=== PATIENT | male | born 1970 | race African-American/Black ===

== ENCOUNTER 2017-02-16 02:29 | Inpatient (IN) | payer BC ==
[~2017-02-16] VITALS: Ht 185.4 cm; Wt 101.0 kg
--- NOTE | ~2017-02-16 | DS ---
Unit #: [id number] #: [id number] Patient: CESAR ROY [id number] [facility] [address], [place] [address] [id number] I MR#: [id number] NAME: CESAR ROY ROOM: 573 Age: 46 Sex: M Admission Date: 02/16/2017 : 1970 Discharge Date: 02/20/2017 Attending Physician: Nellie Harmon M.D. DISCHARGE SUMMARY DICTATED FOR Dr. Geovany Davis with [facility]. HOSPITAL COURSE The patient presented to the [facility]'s Emergency Room on 02/16/2017 at 2:00 a.m. with complaints of chest pain. The patient was admitted, where he was admitted for acute coronary syndrome. The patient was had his troponins trended and EKG as well as A1c and lipid profile completed. The patient did have a blood sugar on admission of 486. Therefore, Endocrinology was consulted for new onset diabetes. A 2D echo was obtained. The patient was started on Integrilin drip as well as heparin drip. Troponin did come back positive at 1.08 and the patient was ruled in as a non-ST elevated VT at that point. The echo showed LVEF of 50% to 55%, mild MR, trivial TR, and RVSP of 32 mmHg. The patient was scheduled for cardiac cath, which he underwent on 02/18/2017. Coronaries were all normal except for RCA, where he had a 99.9% distal lesion. 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 The day after the catheterization, the patient was evaluated by Dr. Davis and his heart rate was a little fast as well as the patient was complaining of some dizziness. Therefore, the patient was started on Coreg for his heart rate and orthostatics were obtained. Orthostatic blood pressures were 107/62 lying, 113/69 sitting, and 112/70 standing, which is negative for orthostatic hypotension. This morning, the orthostatics were 118/59 lying, 131/62 sitting, and 124/69 standing, which again is negative for orthostatic hypotension. The patient is tolerating the Coreg well, where his heart rate is being maintained in the 60s and 70s. He complains of no further dizziness, lightheadedness, or any other symptoms. The patient states that he has been ambulating in the hallway well without any chest pain, pressure, tightness, or shortness of breath. The patient at this point is stable for discharge and is going to be discharged home to follow up with Dr. Harmon on 03/25/2017 at 1 p.m. He should also follow up with his primary care physician in 1 to 2 weeks. ALLERGIES No known allergies. HOME MEDICATIONS Include Coreg 6.25 mg p.o. b.i.d., Lipitor 80 mg p.o. daily, lisinopril 5 mg p.o. daily, Toujeo 40 units subcu at hours of sleep, 10 units of NovoLog with meals, aspirin 81 mg p.o. daily, Brilinta 90 mg p.o. b.i.d., nitroglycerin 0.4 mg tab sublingual every 5 minutes x3 doses as needed for chest pain. Unit #: [id number] #: [id number] Patient: CESAR ROY PHYSICAL EXAMINATION GENERAL: This is a 46-year-old male, who is alert and oriented x3, in no apparent distress. VITAL SIGNS: Blood pressure 122/69, temperature 98.8, pulse 79, respirations 18. HEENT: Pupils are equal, round, and reactive. Oral mucosa is moist. NECK: No JVD. No thyromegaly. No lymphadenopathy. No carotid bruits. HEART: S1, S2. No S3 or S4. No clicks. No rubs. No murmurs. Regular rate and rhythm. LUNGS: Clear. ABDOMEN: Soft. Bowel sounds positive. Nontender. Nondistended. EXTREMITIES: No swelling. Right radial cath site is clean, dry, and intact with no hematoma or bruit noted. Some slight bruising to the area that is noted to be normal. DISCHARGE INSTRUCTIONS The patient to be discharged home and to follow up with Dr. Harmon on 03/25/2017 at 1:00 p.m., also with the primary care physician in 1 to 2 weeks. The patient was given all activity restrictions related to his right radial cath site. The patient's verbalized understanding. DISCHARGE STATUS His condition is stable. Dictated by... RYNE Galvan/alex TD: 02/20/2017 20:29 JOB #: [id number] DISCHARGE SUMMARY Page 1 of 1 X X DISCHARGE SUMMARY
--- NOTE | ~2017-02-16 | EKG ---
PATIENT: CESAR ROY UNIT #: [id number] Ventricular Rate: 76 BPM Atrial Rate: 76 BPM P-R Interval: 170 ms QRS Duration: 88 ms Q-T Interval: 384 ms QTC Calculation(Bezet): 432 ms P [place]: 55 degrees Calculated R [place]: 46 degrees Calculated T [place]: 24 degrees Diagnosis Line: Normal sinus rhythm Diagnosis Line: Cannot rule out Inferior infarct Non Diagnostic Q Diagnosis Line: in Lead Inferior leads Diagnosis Line: When compared with ECG of 17-FEB-2017 07:25, Diagnosis Line: (unconfirmed) Diagnosis Line: No significant change was found Diagnosis Line: Confirmed by JEWEL HURD MD ([id number]) on 02/20/2017 Diagnosis Line: 7:47:53 AM INTERPRETING MD: VANNESSA CONLEY
--- NOTE | ~2017-02-16 | EKG ---
PATIENT: CESAR ROY UNIT #: [id number] Ventricular Rate: 70 BPM Atrial Rate: 70 BPM P-R Interval: 174 ms QRS Duration: 90 ms Q-T Interval: 382 ms QTC Calculation(Bezet): 412 ms P [place]: 44 degrees Calculated R [place]: 22 degrees Calculated T [place]: 20 degrees Diagnosis Line: Normal sinus rhythm Diagnosis Line: Normal ECG Diagnosis Line: When compared with ECG of 18-FEB-2017 06:01, Diagnosis Line: (unconfirmed) Diagnosis Line: No significant change was found Diagnosis Line: Confirmed by JEWEL HURD MD ([id number]) on 02/20/2017 Diagnosis Line: 7:50:18 AM INTERPRETING MD: VANNESSA CONLEY
--- NOTE | ~2017-02-16 | CO ---
Unit #: [id number] #: [id number] Patient: CESAR ROY [id number] [address] [place], [place] [address] [id number] I MR#: [id number] NAME: CESAR ROY ROOM: 573 Age: 46 Sex: M Admission Date: 02/16/2017 : 1970 Attending Physician: Nellie Harmon M.D. Primary Care Physician: Primary Care Physician No Consultation Date: 02/16/2017 CONSULTATION REPORT REASON FOR CONSULTATION Newly diagnosed type 2 diabetes mellitus. HISTORY OF PRESENT ILLNESS This is a 46-year-old male, who presented to the emergency room with chief complaint of the chest pain with a positive troponin. On further evaluation, he was found to have the abnormal glucose of 479 on his labs. He does report to have the polyuria, polydipsia, and lost about 30 pounds over the last 3 to 4 months. I have been asked to see the patient for further management. REVIEW OF SYSTEMS A 12-point review of systems is completed and remarkable for polyuria, polydipsia, weight loss as mentioned above. Chest pains, but no shortness of air. No urgency, hematuria, or dysuria. No nausea, vomiting, abdominal pain. No neuro problems or weaknesses, headaches, or seizures. Rest of the 12-point review of systems is unremarkable. SOCIAL HISTORY Declines tobacco or alcohol. He works in a . PAST SURGICAL HISTORY Umbilical hernia repair. FAMILY HISTORY Negative for coronary artery disease and diabetes. ALLERGIES None known. MEDICATION None. PHYSICAL EXAMINATION GENERAL: He is awake, alert, oriented to time, place, and person. VITAL SIGNS: Stable. Temperature 98.3, respiratory rate 16, blood pressure 120/70 and pulse is 78. HEENT: EOMI. Pupils equally reactive to light. NECK: Supple. No thyromegaly noted. CHEST: Good air entry. CVS: Regular rhythm. No murmurs. ABDOMEN: Soft and nontender. Bowel sounds positive. EXTREMITIES: No edema or ulcers are noted. Unit #: [id number] #: [id number] Patient: CESAR ROY NEUROLOGIC: Nonfocal. Moving all extremities. SKIN: No rashes. DIAGNOSTIC STUDIES LABORATORY RESULTS: Reviewed. Sodium is 127. CPK 342, troponin 1.02. TSH 1.05. ASSESSMENT 1. Type 2 diabetes mellitus, newly diagnosed. 2. Acute coronary syndrome with coronary artery disease. PLAN Discussed with the patient at length about the lifestyle modification. Get the nutrition consults. We will start the patient on the Levemir 30 units at bedtime, NovoLog 8 units each meal, medium dose supplemental sliding scale. Thanks again for consultation. We will follow the patient as an outpatient. Dictated by... Julia Le/alex TD: 02/16/2017 18:57 JOB #: [id number] CONSULTATION REPORT Page 1 of 1 X Shelby Valero MD X CONSULTATION REPORT
--- NOTE | ~2017-02-16 | EKG ---
PATIENT: CESAR ROY UNIT #: [id number] Ventricular Rate: 74 BPM Atrial Rate: 74 BPM P-R Interval: 178 ms QRS Duration: 86 ms Q-T Interval: 368 ms QTC Calculation(Bezet): 408 ms P [place]: 52 degrees Calculated R [place]: 33 degrees Calculated T [place]: 12 degrees Diagnosis Line: Normal sinus rhythm Diagnosis Line: Cannot rule out Inferior infarct Diagnosis Line: Abnormal ECG Diagnosis Line: When compared with ECG of 16-FEB-2017 05:41, Diagnosis Line: (unconfirmed) Diagnosis Line: No significant change was found Diagnosis Line: Confirmed by JEWEL HURD MD ([id number]) on 02/20/2017 Diagnosis Line: 7:44:05 AM INTERPRETING MD: VANNESSA CONLEY
--- NOTE | ~2017-02-16 | A ---
[facility] Nutrition Therapy DATE: 02/18/17 Patient: CESAR ROY Physician: ATTPRE Address: [address] [facility] Room/Bed: [address] [place] [address], Zip: [place] [address] Admit Date: 02/16/17 Date of : [birth year] Height: 6 1 Weight: 221 100.6 NUTRITIONAL ASSESSMENT: REASON: CONSULT RE: DIET EDUCATION PT IS 46 Y.O. MALE ADMITTED FOR CHEST PAIN, NEWLY DX OF DM PMH: NO KNOWN PMH Anthropometrics: 6'1", WT: 221-229# (100-104 KG), BMI: 29.2-30.2 Labs: GLU: 214, NA+:134 Meds: ZOFRAN, NOVOLOG, LEVEMIR, NACL, LIPITOR I/O & Bowel function: 2183/1804, 1 BM Skin Integrity: NO KNOWN SKIN ISSUES Assessment: CHART REVIEWED AND EVENTS NOTED. PT SEEN FOR DIET EDUCATION CONSULT. PT REPORTS LOSING ~30# PAST 3-4 MONTHS 2' DIABETES DX. RD PROVIDED WRITTEN AND VERBAL CC DIET EDUCATION. RD EMPHASIZED IMPORTANCE OF CONSUMING 3 BALANCED MEALS DAILY + LIMITING SUGAR-SWEETENED BEVERAGES. RD ALSO DISCUSSED WAYS OF LIMITING SALT INTAKE WELL. PT REPORTS CONSUMING FRIED FOODS AND DRINKS DIET SODAS AND SNACKS ON SWEETS. AND DEMONSTRATED UNDERSTANDING OF THE TOPIC, REPORTED NO DIET QUESTIONS AT THIS TIME. RD TO REMAIN AVAILABLE. Dx: FOOD AND NUTRITION RELATED KNOWLEDGE DEFICIT R/T DIET CHOICES, LIFESTYLE AEB PT REPORT ABOVE. 2. ALTERED NUTRIENT UTILIZATION R/T CURRENT DIAGNOSIS AEB NEED FOR THERAPEUTIC DIET ORDER. Intervention: 1. HH DIET 2. WRITTEN AND VERBAL CC+HH DIET EDUCATION Monitoring, Evaluation and Goals: 1. ORAL INTAKE; CONSUME >50% OF MEALS 2. WEIGHTS; PREVENT FURTHER UNINTENTIONAL WEIGHT LOSS 3. LABS; WNL (GLU) Recommendations: 1. RECOMMEND TO ADD CC TO CURRENT DIET ORDER ABOVE 2. OBTAIN A1c TO BETTER ASSESS DM MANAGEMENT [facility] Therapy DATE: 02/18/17 Patient: CESAR RYDERAmita Physician: ATTPRE Address: [address] [facility] Room/Bed: [address] [place] [address], Zip: [place] [address] Admit Date: 02/16/17 Date of : [birth year] Height: 6 1 Weight: 221 100.6 3. ENCOURAGE COMPLIANCE OF DIET ORDER RD WILL F/U PER PROTOCOL PT IS MILDLY COMPROMISED Respectfully, YONIS NIXON MS, RD, LD Food and Nutritional Services [facility] cc: client file
--- NOTE | ~2017-02-16 | EKG ---
PATIENT: CESAR ROY UNIT #: [id number] Ventricular Rate: 74 BPM Atrial Rate: 74 BPM P-R Interval: 182 ms QRS Duration: 88 ms Q-T Interval: 380 ms QTC Calculation(Bezet): 421 ms P [place]: 41 degrees Calculated R [place]: 37 degrees Calculated T [place]: 37 degrees Diagnosis Line: Normal sinus rhythm with sinus arrhythmia Diagnosis Line: Normal ECG Diagnosis Line: No previous ECGs available Diagnosis Line: Confirmed by JEWEL HURD MD ([id number]) on 02/20/2017 Diagnosis Line: 7:39:46 AM INTERPRETING MD: VANNESSA CONLEY
--- NOTE | ~2017-02-16 | CR72 ---
[facility] A Service of [facility] RADIOLOGY TEXT RESULTS PATIENT: CESAR ROY LOCATION: [facility] [id number] : [birth year] UNIT #: [id number] AGE: [address]: Nellie Harmon MD SEX: M ORDER DR: [id number] [facility] [address] [facility]. [place], [place] [address] [id number] MR#: [id number] Acc #: [id number] NAME: CESAR ROY : 1970 SEX: M STUDY DATE/TIME: 02/16/2017 03:17 UNIT: [facility] ROOM: [facility] STUDY DESCRIPTION: CR Chest Single View Portable Attending Physician: Nellie Harmon M.D. Ordering Physician: Vandana Drummond Pa-C Primary Care Physician: No Primary Care Physician MEDICAL IMAGING REPORT This report is preliminary unless electronic signature is present EXAM Portable chest, 02/16/2017, at 03:17. INDICATIONS Shortness of air, chest pain and cough that started today. FINDINGS A single AP portable view of the chest shows both lungs to be clear. The heart is normal in size. The mediastinal contour is normal. No significant bone abnormalities are seen. IMPRESSION Normal portable chest. Dictated by... Brian Garcia Jr., M.D. THIS IS AN ELECTRONICALLY VERIFIED REPORT Brian Garcia Jr., M.D. at 02/17/2017 4:15 AM BILLIE/bree TD: 02/16/2017 23:57 JOB #: [id number] MEDICAL IMAGING REPORT Page 1 of 1 COPY
--- NOTE | ~2017-02-16 | HP ---
Unit #: [id number] #: [id number] Patient: CESAR ROY [id number] [facility]. [address] [place], [place] [address] [id number] I MR#: [id number] NAME: CESAR ROY ROOM: 573 Age: 46 Sex: M Admission Date: 02/16/2017 : 1970 Attending Physician: Nellie Harmon M.D. Primary Care Physician: No Primary Care Physician HISTORY AND PHYSICAL HISTORY OF PRESENT ILLNESS This is a 46-year-old -[place] male who presented to the emergency room with a chief complaint of chest pain. He says he was in his usual state of health last night while he was getting ready for bed. He had left anterior chest pain which he describes as a tightness that was nonradiating to his neck, arm or jaw. He felt palpitations but no dizziness, diaphoresis or dyspnea. The chest pain lasted for approximately five minutes in duration off and on for more than an hour. EMS was dispatched and he was brought to the emergency room. He was given aspirin. His chest pain eventually resolved. He was also found to have an elevated glucose level per Accu-Chek at 479 that was treated with insulin. His glucose levels per his labs this a.m. also elevated at 486. The patient denies a history of hypertension, hyperlipidemia or diabetes in the past. He has not seen a doctor for the past four years. He has an increase in his thirst and has lost 40 pounds over the past four months. His troponin initially was negative but elevated to 0.20. His repeat troponin this morning ruled him in for an acute myocardial infarction where it was 1.08. His EKG shows no acute ischemic changes. PAST MEDICAL HISTORY Lifelong nonsmoker. PAST SURGICAL HISTORY Umbilical hernia repair as a child. SOCIAL HISTORY The patient works for a [employer]. 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 He has no symptoms. He has never smoked, drinks alcohol on rare occasions, denies illicit drug use. FAMILY HISTORY Negative for coronary artery disease. ALLERGIES No known drug allergies. HOME MEDICATIONS No current medications. REVIEW OF SYSTEMS CONSTITUTIONAL: Positive for a 40 pound weight loss over the past month. No fatigue or weakness. He has increase in thirst. HEENT: No headache, hearing or vision changes. No difficulty with Unit #: [id number] #: [id number] Patient: CESAR ROY swallowing. No dizziness. CARDIOVASCULAR: Has chest pain described in the HPI. Reports palpitations. The patient denies paroxysmal nocturnal dyspnea, orthopnea. No syncope or near syncope. RESPIRATORY: Negative for dyspnea, cough or hemoptysis. GASTROINTESTINAL: No abdominal pain, nausea, vomiting. No constipation or melena. EXTREMITIES: Negative for lower extremity edema. PHYSICAL EXAMINATION GENERAL APPEARANCE: This is a mildly obese 46-year-old white male who is in no acute respiratory distress. VITAL SIGNS: Blood pressure 132/80. Heart rate 84. Temperature 98.5. BMI 30. NEUROLOGIC: He is awake, alert, oriented. There are no focal weakness. NECK: Trachea is midline. No thyromegaly or lymphadenopathy. No jugular venous distention. HEART: S1, S2 heart sounds are normal. No murmurs or rubs or clicks. Regular rate and rhythm. LUNGS: Clear without rales, rhonchi or wheeze. ABDOMEN: Slightly obese with positive bowel sounds. No organomegaly. EXTREMITIES: With palpable pedal pulses without leg edema. SKIN: Warm and dry. DIAGNOSTIC STUDIES LABORATORY STUDIES: Glucose 486, BUN 12, creatinine 0.9, sodium 127, potassium 4.3. CK total 342, MB 13.7, MB index 4.0, troponin less than 0.05 to 0.20 to 1.08. Cholesterol 143, triglycerides 81, LDL 87, HDL 42. TSH 1.05. White count 6.8, hemoglobin 13.7, hematocrit 42.4, platelet count 234. DIAGNOSTIC IMAGING: Chest x-ray shows no active disease. CARDIOVASCULAR STUDIES: EKG: Normal sinus rhythm with a rate of 76 per minute, otherwise, normal. IMPRESSION 1. Acute non-ST elevation myocardial infarction. 2. New onset diabetes mellitus type 2. 3. Forty pound weight loss in the last four months. 4. Hyponatremia. PLAN 1. Because the patient ruled in for an acute myocardial infarction, he will require cardiac catheterization to evaluate his coronary anatomy. This has been discussed with the patient and and they are agreeable. 2. We will start the patient on YOLY inhibitor, beta yoana and statin. 3. We will anticoagulate with aspirin and start on heparin and Integrilin drips. Lovenox will be discontinued. 4. 2-D echocardiogram will be done to evaluate left ventricular systolic function. 5. We will have the diabetic online editor to see the patient for diabetes education. 6. We will also consult Dr. Valero for new onset diabetes mellitus. 7. Hemoglobin A1C will be done. 8. Further recommendations pending results of the cardiac catheterization. Unit #: [id number] #: [id number] Patient: CESAR ROY Dictated by Giacomo AbarcaRKyler for Julia Tadeo/rekha TD: 02/16/2017 16:32 JOB #: [id number] HISTORY AND PHYSICAL Page 1 of 1 X Lloyd Morataya APRN X HISTORY AND PHYSICAL
--- NOTE | ~2017-02-16 | EKG ---
PATIENT: CESAR ROY UNIT #: [id number] Ventricular Rate: 75 BPM Atrial Rate: 75 BPM P-R Interval: 174 ms QRS Duration: 86 ms Q-T Interval: 382 ms QTC Calculation(Bezet): 426 ms P [place]: 50 degrees Calculated R [place]: 64 degrees Calculated T [place]: 22 degrees Diagnosis Line: Normal sinus rhythm Diagnosis Line: Inferior infarct Diagnosis Line: When compared with ECG of 18-FEB-2017 09:44, Diagnosis Line: (unconfirmed) Diagnosis Line: No significant change was found Diagnosis Line: Confirmed by JEWEL HURD MD ([id number]) on 02/20/2017 Diagnosis Line: 7:55:04 AM INTERPRETING MD: VANNESSA CONLEY
--- NOTE | ~2017-02-16 | EKG ---
PATIENT: CESAR ROY UNIT #: [id number] Ventricular Rate: 76 BPM Atrial Rate: 76 BPM P-R Interval: 194 ms QRS Duration: 94 ms Q-T Interval: 374 ms QTC Calculation(Bezet): 420 ms P [place]: 23 degrees Calculated R [place]: 56 degrees Calculated T [place]: 35 degrees Diagnosis Line: Normal sinus rhythm Diagnosis Line: Normal ECG Diagnosis Line: No previous ECGs available Diagnosis Line: Confirmed by JEWEL HURD MD ([id number]) on 02/20/2017 Diagnosis Line: 7:39:43 AM INTERPRETING MD: VANNESSA CONLEY
[2017-02-16 03:51] LABS: POC - CKMB 2.5 ng/mL (0.0-7.9); POC - TROPONIN <0.05 ng/mL (<=0.05)
[2017-02-16 03:56] LABS: BASOPHIL% 0.2 % (0-2.5); EOSINOPHIL% 0.4 % (0.0-7.0); HEMATOCRIT 42.4 % (38.0-50.0); HEMOGLOBIN 13.7 gm/dL (13.0-16.0); LYMPHOCYTE# 1.4 X10e3 (1.0-3.5); MEAN CELL VOLUME 77.7 FL (83-96); MEAN CORPUSCULAR HEMOGLOBIN 25.1 PG (28-34); MEAN CORPUSCULAR HGB CONC 32.2 g/dL (30-36); MEAN PLATELET VOLUME 9.3 FL (6.5-11.5); MONOCYTE# 0.5 X10e3 (0-1.0); MONOCYTE% 7.4 % (3.0-12.0); NEUTROPHIL# 4.8 X10e3 (1.5-7.1); PLATELET COUNT 234 X10e3 (140-420); RED BLOOD COUNT 5.45 X10e (3.90-5.60); RED CELL DISTRIBUTION WIDTH 14.6 % (11.0-15.5); WHITE BLOOD COUNT 6.8 X10e3 (4.0-10.5)
[2017-02-16 03:57] LABS: DIFF IND NO
[2017-02-16 04:10] LABS: INR 1.1; PARTIAL THROMBOPLASTIN TIME 24.5 SECONDS (23.5-31.3); PROTHROMBIN TIME (PATIENT) 11.4 SECONDS (10.0-11.7)
[2017-02-16 04:23] LABS: BILIRUBIN, DIRECT 0.1 mg/dL (0.0-0.2); BILIRUBIN,INDIRECT 0.3 mg/dL (0.0-0.9); BILIRUBIN,TOTAL 0.4 mg/dL (0.2-2.0); BUN/CREATININE RATIO 13.33; CALCIUM SERUM 8.8 mg/dL (8.4-10.2); CREATININE SERUM 0.9 mg/dL (0.6-1.4); POTASSIUM 4.3 mmol/L (3.5-5.1)
[2017-02-16 05:25] LABS: POC - CKMB 5.1 ng/mL (0.0-7.9); POC - TROPONIN 0.2 ng/mL (<=0.05)
[2017-02-16] MEDS ORDERED: NO MEDICATIONS (05:42)
[2017-02-16 07:29] LABS: CHOLESTEROL 143 mg/dL (0-200); HDL CHOLESTEROL 40 mg/dL (29-75); LDL CHOLESTEROL 87 mg/dL (-130); LDL/HDL RATIO 2 RATIO (0-4); TRIGLYCERIDES 81 mg/dL (10-160)
[2017-02-16 10:15] LABS: MB 13.7 ng/ml
[2017-02-16 18:37] LABS: HEMATOCRIT 42.2 % (38.0-50.0); MEAN CELL VOLUME 77.2 FL (83-96); MEAN CORPUSCULAR HEMOGLOBIN 25.6 PG (28-34); MEAN CORPUSCULAR HGB CONC 33.1 g/dL (30-36); RED BLOOD COUNT 5.46 X10e (3.90-5.60); RED CELL DISTRIBUTION WIDTH 14.6 % (11.0-15.5); WHITE BLOOD COUNT 7.9 X10e3 (4.0-10.5)
[2017-02-17 02:17] LABS: HEMATOCRIT 42.6 % (38.0-50.0); HEMOGLOBIN 13.8 gm/dL (13.0-16.0); MEAN CELL VOLUME 77.3 FL (83-96); MEAN CORPUSCULAR HEMOGLOBIN 25.1 PG (28-34); MEAN CORPUSCULAR HGB CONC 32.5 g/dL (30-36); MEAN PLATELET VOLUME 9.2 FL (6.5-11.5); RED BLOOD COUNT 5.51 X10e (3.90-5.60); RED CELL DISTRIBUTION WIDTH 14.7 % (11.0-15.5); WHITE BLOOD COUNT 7.4 X10e3 (4.0-10.5)
[2017-02-17 02:22] LABS: BUN/CREATININE RATIO 13.33; CALCIUM SERUM 8.8 mg/dL (8.4-10.2); CREATININE SERUM 0.9 mg/dL (0.6-1.4); POTASSIUM 3.8 mmol/L (3.5-5.1)
[2017-02-17 21:27] LABS: BASOPHIL% 0.5 % (0-2.5); EOSINOPHIL# 0.1 X10e3 (0-0.7); HEMATOCRIT 44.9 % (38.0-50.0); HEMOGLOBIN 14.7 gm/dL (13.0-16.0); LYMPHOCYTE# 2.9 X10e3 (1.0-3.5); LYMPHOCYTE% 32.3 % (17.0-45.0); MEAN CELL VOLUME 77.3 FL (83-96); MEAN CORPUSCULAR HEMOGLOBIN 25.3 PG (28-34); MEAN CORPUSCULAR HGB CONC 32.8 g/dL (30-36); MEAN PLATELET VOLUME 8.8 FL (6.5-11.5); MONOCYTE# 0.6 X10e3 (0-1.0); MONOCYTE% 6.6 % (3.0-12.0); NEUTROPHIL# 5.4 X10e3 (1.5-7.1); NEUTROPHIL% 59.6 % (40-75); PLATELET COUNT 271 X10e3 (140-420); RED BLOOD COUNT 5.81 X10e (3.90-5.60); RED CELL DISTRIBUTION WIDTH 14.4 % (11.0-15.5)
[2017-02-17 21:47] LABS: INR 1.1; PROTHROMBIN TIME (PATIENT) 11.7 SECONDS (10.0-11.7)
[2017-02-17 21:53] LABS: DIFF IND NO
[2017-02-18 05:35] LABS: HEMATOCRIT 41.9 % (38.0-50.0); HEMOGLOBIN 13.8 gm/dL (13.0-16.0); MEAN CORPUSCULAR HEMOGLOBIN 25.4 PG (28-34); MEAN CORPUSCULAR HGB CONC 32.9 g/dL (30-36); MEAN PLATELET VOLUME 8.9 FL (6.5-11.5); RED BLOOD COUNT 5.44 X10e (3.90-5.60); RED CELL DISTRIBUTION WIDTH 14.5 % (11.0-15.5); WHITE BLOOD COUNT 8.3 X10e3 (4.0-10.5)
[2017-02-18 05:48] LABS: INR 1.1; PARTIAL THROMBOPLASTIN TIME 83.5 SECONDS (23.5-31.3)
[2017-02-18 06:51] LABS: BUN/CREATININE RATIO 15.55; CALCIUM SERUM 9.2 mg/dL (8.4-10.2); CREATININE SERUM 0.9 mg/dL (0.6-1.4); POTASSIUM 4.1 mmol/L (3.5-5.1)
[2017-02-18 17:01] LABS: ANGIO %MB 1.6 % (0.0-4.0); ANGIO MB 2.2 ng/ml
[2017-02-19 00:20] LABS: HEMATOCRIT 42.1 % (38.0-50.0); HEMOGLOBIN 13.6 gm/dL (13.0-16.0); MEAN CELL VOLUME 76.7 FL (83-96); MEAN CORPUSCULAR HEMOGLOBIN 24.8 PG (28-34); MEAN CORPUSCULAR HGB CONC 32.4 g/dL (30-36); MEAN PLATELET VOLUME 8.7 FL (6.5-11.5); RED BLOOD COUNT 5.49 X10e (3.90-5.60); RED CELL DISTRIBUTION WIDTH 14.6 % (11.0-15.5); WHITE BLOOD COUNT 7.5 X10e3 (4.0-10.5)
[2017-02-19 01:02] LABS: ANGIO %MB 2.2 % (0.0-4.0); ANGIO MB 2.8 ng/ml
[2017-02-19 01:05] LABS: BUN/CREATININE RATIO 17.14; CALCIUM SERUM 9.2 mg/dL (8.4-10.2); CREATININE SERUM 0.7 mg/dL (0.6-1.4); GLOM FILT RATE Estimated 133.1 mL/min (>60)
[2017-02-20] MEDS ORDERED: COREG6.25 MG PO (13:34)
[2017-02-20] MEDS ORDERED: LIPITOR PO (13:35)
[2017-02-20] MEDS ORDERED: LISINOPRIL5 MG PO (13:36)
[2017-02-20] MEDS ORDERED: TOUJEO SOL300 UNIT/1 SUBQ (13:37)
[2017-02-20] MEDS ORDERED: NOVOLOG FL100 UNIT/1 SUBQ (13:40)
[2017-02-20] MEDS ORDERED: METFORMIN HCL500 M3 PO (13:41)
[2017-02-20] MEDS ORDERED: BRILINTA90 MG PO (13:42)
[2017-02-20] MEDS ORDERED: ASPIRIN81 MG PO (13:42)
[2017-02-20] MEDS ORDERED: NITROGLYGERIN0.4 MG SL (13:43)
== END 2017-02-20 16:34 | disposition home or self-care (01) | DRG 247 ==
LOC: CED 02:29 → CEDOF 05:58 → C5C 05:58 → CEDOF 06:04 → CED 06:04 → CEDOF 07:35 → C5C 07:35
PROVIDERS: Internal Medicine Cardiovascular Disease; Physician Assistant Medical
PROC: B24BZZZ Ultrasonography of Heart with Aorta (ICD-10-PCS; 2017-02-16)
PROC: 027034Z Dilation of Coronary Artery, One Artery with Drug-eluting Intraluminal Device, Percutaneous Approach (ICD-10-PCS; principal; 2017-02-18)
PROC: 4A023N7 Measurement of Cardiac Sampling and Pressure, Left Heart, Percutaneous Approach (ICD-10-PCS; 2017-02-18)
PROC: B215YZZ Fluoroscopy of Left Heart using Other Contrast (ICD-10-PCS; 2017-02-18)
PROC: B211YZZ Fluoroscopy of Multiple Coronary Arteries using Other Contrast (ICD-10-PCS; 2017-02-18)
DX: I21.4 Non-ST elevation (NSTEMI) myocardial infarction (principal); E87.1 Hypo-osmolality and hyponatremia; E11.9 Type 2 diabetes mellitus without complications; I25.10 Atherosclerotic heart disease of native coronary artery without angina pectoris; E78.5 Hyperlipidemia, unspecified; R63.4 Abnormal weight loss; Z68.29 Body mass index [BMI] 29.0-29.9, adult; I24.9 Acute ischemic heart disease, unspecified
CPT/HCPCS: 36415; 71010; 80048; 80061; 80076; 82550; 82553; 82947; 84443; 84484; 85025; 85027; 85347; 85610; 85730; 93005; 93306; 96360; 99152; 99153; 99285; C1725; C1769; C1874; C1887; C1894; J1327; J1644; J1650; J1815; J2250; J3010